=== PATIENT | male | born 1970 | race Two or more races ===

== ENCOUNTER 2023-07-22 15:53 | Emergency (ER) | payer MEDICAID, OTHER ==
[~2023-07-22] VITALS: Ht 177.8 cm; Wt 91.3 kg
[2023-07-22 16:30] VITALS: BP 152/83; PULSE 70; RESP 18; O2SAT 98
[2023-07-22] MEDS ORDERED: IBUP-1456 PO (17:09)
[2023-07-22] MEDS ORDERED: METH-1182 PO (17:09)
[2023-07-22 17:11] VITALS: TEMP 98.5
[2023-07-22] MEDS ORDERED: ACETAMINOPHEN 500 MG TAB PO ONE (17:15)
== END 2023-07-22 17:27 | disposition home or self-care (01) ==
LOC: ER 15:53
DX: S16.1XXA Strain of muscle, fascia and tendon at neck level, initial encounter (principal); S39.012A Strain of muscle, fascia and tendon of lower back, initial encounter; S46.811A Strain of other muscles, fascia and tendons at shoulder and upper arm level, right arm, initial encounter; E11.9 Type 2 diabetes mellitus without complications; Z98.890 Other specified postprocedural states; Z79.899 Other long term (current) drug therapy; V29.99XA Rider (driver) (passenger) of other motorcycle injured in unspecified traffic accident, initial encounter; Y93.I9 Activity, other involving external motion; Y92.410 Unspecified street and highway as the place of occurrence of the external cause; Y99.8 Other external cause status
CPT/HCPCS: 72040; 72100; 73030